=== PATIENT | male | born 1950 | race Caucasian/White ===

== ENCOUNTER 2018-10-05 06:54 | Day surgery (SDC) | payer MEDICARE, OTHER ==
[~2018-10-05] VITALS: Ht 188 cm; Wt 103.4 kg
[2018-10-05] MEDS ORDERED: ATOR20TA MT (07:53)
[2018-10-05] MEDS ORDERED: AMIO100T4 MT (07:53)
[2018-10-05] MEDS ORDERED: AMLO10TA4 MT (07:53)
[2018-10-05] MEDS ORDERED: TADA20TA PO (07:53)
[2018-10-05] MEDS ORDERED: Avalide PO (07:53)
[2018-10-05] MEDS ORDERED: MELO-106 MT (07:53)
[2018-10-05] MEDS ORDERED: WARF-53 MT (07:53)
[2018-10-05] MEDS ORDERED: FENTANYL CITRATE/PF 50MCG/ML 2ML VIAL ONE (08:25)
[2018-10-05] MEDS ORDERED: TETRACAINE/BENZOCAINE/BUTAMBEN 20 GM SPRAY MM ONE (08:26)
[2018-10-05] MEDS ORDERED: MIDAZOLAM HCL 5 MG/5 ML VIAL ONE (08:26)
[2018-10-05] MEDS ORDERED: LIDOCAINE HCL 2% JELLY 5ML ONE (08:28)
[2018-10-05] MEDS ORDERED: CEFAZOLIN 1000MG PREMIX 50 ML IV ONE (08:39)
[2018-10-05] MEDS ORDERED: GENTAMICIN 80MG PREMIX 100 ML IV NR (08:45)
[2018-10-05] MEDS ORDERED: IODIXANOL 320MG/ML 100 ML BOTTLE IV ONE (09:02)
[2018-10-05] MEDS ORDERED: ACETAMINOPHEN 325MG TABLET PO PRN (10:15)
[2018-10-05] MEDS ORDERED: ONDANSETRON HCL 4MG/2ML INJ IV PRN (10:15)
[2018-10-05] MEDS ORDERED: GENTAMICIN 80MG PREMIX 100 ML IV SCH (17:00)
== END 2018-10-05 13:00 | disposition home or self-care (01) ==
LOC: CARD 06:54
PROVIDERS: ATTEND Specialist
DX: I11.9 Hypertensive heart disease without heart failure (principal); I48.0 Paroxysmal atrial fibrillation; E78.5 Hyperlipidemia, unspecified; M17.0 Bilateral primary osteoarthritis of knee; Z79.01 Long term (current) use of anticoagulants; Z79.899 Other long term (current) drug therapy; Z98.890 Other specified postprocedural states; Z95.2 Presence of prosthetic heart valve
CPT/HCPCS: 93312; J0690; J1580; J2250; J3010; Q9967